=== PATIENT | female | born 1975 | race Asian ===

== ENCOUNTER 2017-08-20 22:24 | Emergency (ER) | payer OTHER ==
[~2017-08-20] VITALS: Ht 154.9 cm; Wt 56.4 kg
[~2017-08-20 22:24] MED LIST: DOXYCYCLINE 10100 MG PO; HCTZ12.5TAB PO; NO HOME MEDICATIONS; NORCO 325 MG-51 TAB PO
[2017-08-20 22:32] VITALS: BP 170/81; TEMP 98.6
[2017-08-20 23:12] VITALS: PULSE 80
== END 2017-08-20 23:17 | disposition home or self-care (01) ==
LOC: COL.ER 22:24
DX: R22.0 Localized swelling, mass and lump, head (principal)

== ENCOUNTER 2023-10-11 20:30 | Emergency (ER) | payer OTHER ==
[~2023-10-11] VITALS: Ht 152.4 cm; Wt 59.5 kg
[2023-10-11 20:35] VITALS: TEMP 98.3
[2023-10-11] MEDS ORDERED: hydrALAZINE 20 MG/ML 1 ML VIAL IV ONE (21:30)
[2023-10-11 22:07] LABS: COLLECTION METHOD CLEAN CATCH
[2023-10-11 22:08] LABS: HEMOGLOBIN 11.4 g/dl (12.5-16.0); MEAN CELL VOLUME 64 fl (80.0-100.0); MEAN CORPUSCULAR HEMOGLOBIN 21 pg (27-31); MEAN CORPUSCULAR HGB CONC 33 g/dl (33.0-37.0); MEAN PLATELET VOLUME 10.4 fl (7.4-10.4); PLATELET COUNT 253 K/mm3 (130-400)
[2023-10-11 22:15] LABS: HEMATOCRIT 34.9 % (37.0-47.0)
[2023-10-11 22:22] LABS: BILIRUBIN,TOTAL 0.4 mg/dL (0.2-1.2); CALCIUM 10.2 mg/dL (8.4-10.2); CREATININE, serum 0.95 mg/dL (0.57-1.11); POTASSIUM 3.4 mmol/L (3.5-4.5)
[2023-10-11 22:43] LABS: SQUAMOUS EPITHELIAL 0-2 /hpf (0-10); URINE APPEARANCE Clear (CLEAR/HAZY); URINE BLOOD TRACE-INTACT (NEGATIVE); URINE COLOR Yellow (YELLOW); URINE GLUCOSE Negative (NEGATIVE); URINE KETONE Negative (NEGATIVE); URINE NITRATE Negative (NEGATIVE); URINE PROTEIN(semi-quant) Negative (NEGATIVE); URINE RBC 0-2 /hpf (0-2); URINE UROBILINOGEN 0.2 E.U/dL (0.2-1.0)
[2023-10-11 22:44] LABS: URINE BACTERIA None Seen /hpf (NONE SEEN)
[2023-10-11 23:13] LABS: BAND 1 % (0-10); EOSINOPHIL 21 % (0-4); LYMPHOCYTE 35 % (20.0-51.0); NEUTROPHILS 37 % (42.0-75.2); PLATELET ESTIMATE NORMAL (NORMAL)
[2023-10-11 23:15] LABS: HYPOCHROMIA 1+; TARGET CELLS 1+
[2023-10-11 23:38] VITALS: BP 164/80; PULSE 64
== END 2023-10-11 23:39 | disposition home or self-care (01) ==
LOC: COL.ER 20:30
PROVIDERS: Physician Assistant
DX: I10 Essential (primary) hypertension (principal); F17.210 Nicotine dependence, cigarettes, uncomplicated; Z79.899 Other long term (current) drug therapy
CPT/HCPCS: J0360